=== PATIENT | male | born 1990 | race Caucasian/White ===

== ENCOUNTER 2023-07-01 06:16 | Day surgery (SDC) | payer OTHER ==
[2023-07-01] MEDS ORDERED: LACTATED RINGERS 1,000 ML IV SCH (06:48)
[2023-07-01] MEDS ORDERED: LIDOCAINE 1% (10MG/ML) FOR IV START INTRADERMA PRN (06:48)
[2023-07-01 06:51] VITALS: TEMP 97.6
[2023-07-01] MEDS ORDERED: LIDOCAINE 2% INJ 20 MG/ML (2 ML VIAL) ONE (07:18)
[2023-07-01] MEDS ORDERED: PROPOFOL 10 MG/ML 20 ML VIAL IV ONE (07:18)
--- NOTE | 2023-07-01 07:37 | P.PCN ---
Date of Procedure: 07/01/23 Procedure(s) Performed: Brief history: Patient is a pleasant 32-year-old white male scheduled for an elective upper endoscopy as well as colonoscopy as a part of evaluation of progressive dysphagia to solids and liquids for the last 2 years duration. He has the symptoms with every meal and most often with solids than liquids. Also has been having intermittent rectal bleeding. Procedure performed: Esophagogastroduodenoscopy with biopsy and dilation Colonoscopy Preoperative diagnosis: Dysphagia to solids of 2 years duration Intermittent rectal bleeding Anesthesia: MAC Procedure: After informed consent was obtained from the patient was brought into the endoscopy unit and IV sedation was administered by anesthesia under continuous monitoring. Initially upper endoscopy was done. The Olympus GF 160 video endoscope was inserted inserted into the mouth and esophagus intubated without any difficulty and was gradually advanced into the stomach and duodenum and carefully examined. The bulb and second part of the duodenum appeared normal. The scope was then withdrawn into the stomach adequately insufflated with air and upon careful examination the antrum and body, cardia and fundus appeared normal. The scope was then withdrawn into the esophagus. Moderate hiatal hernia noted. The GE junction was located at 40 cm to the incisors. The distal esophageal stricture identified that was dilated using 12 and 13.5 mm TTS balloon in a sequential fashion for 30 seconds. Mucosal tear was identified with oozing and hence for the lesion was not performed. The mucosa of the mid and distal esophagus had multiple mucosal rings with longitudinal ridges and furrows suspicious for eosinophilic esophagitis and biopsies were done in the mid and distal esophagus. Rest of the esophagus appeared normal. Patient tolerated the procedure well. At this time the patient continued to remain sedation. Initial digital rectal examination was normal. Olympus CF 160 video colonoscope was then inserted into the rectum and gradually advanced to the cecum without any difficulty. Careful examination was performed as the scope was gradually being withdrawn. The prep was excellent. The cecum, ascending colon, transverse colon, descending colon, sigmoid colon and rectum appeared normal. Retroflexion was performed in the rectum and small internal were noted. Patient tolerated the procedure well. Impression: 1. Upper endoscopy revealed multiple superficial mucosal rings with longitudinal ridges and 4 hours involving the mid and distal esophagus with a distal esophageal stricture status post balloon dilation using 12 and 13 mm TTS balloon consistent WITH EOSINOPHILIC ESOPHAGITIS. SMALL HIATAL 2. Colonoscopy was within normal limits with no evidence of colorectal neoplasia, small internal hemorrhoids Recommendations: Findings of this examination were discussed with the patient as well as his family. He was advised to follow with the biopsy results. He will remain on clear liquid diet for breakfast this morning. Follow up in office in 2 weeks to discuss the biopsy results and further management.
[2023-07-01 08:15] VITALS: BP 101/71; PULSE 61; RESP 15
== END 2023-07-01 08:31 | disposition home or self-care (01) ==
LOC: ORWHC2ENDO 06:16
PROVIDERS: ATTEND Internal Medicine Gastroenterology
DX: K21.00 Gastro-esophageal reflux disease with esophagitis, without bleeding (principal); K62.5 Hemorrhage of anus and rectum; K44.9 Diaphragmatic hernia without obstruction or gangrene; K22.2 Esophageal obstruction; Z79.899 Other long term (current) drug therapy
CPT/HCPCS: 88305; 45378; 43239; 43249; J2704; J2001; C1726

== ENCOUNTER 2023-08-31 07:46 | Day surgery (SDC) | payer OTHER ==
[2023-08-25 12:01] VITALS: BMI 22.8
[~2023-08-31 07:46] MED LIST: SODIUM CHLORIDE 0.9% 1,000 ML IV SCH
[2023-08-31] MEDS ORDERED: SODIUM CHLORIDE 0.9% 500 ML 500 ML IV ONE (07:58)
[2023-08-31 08:18] VITALS: BP 119/74; PULSE 84; RESP 16; TEMP 98.6
--- NOTE | 2023-08-31 15:12 | P.EPPROC ---
- EP Procedure Note Electrophysiology Procedure Note: Diagnosis Recurrent presyncope Twelve-lead EKG Sinus rhythm Normal EKG Tilt table test protocol Baseline blood pressure 101/62 Baseline heart rate 63 beats a minute Patient was tilted upright at an angle of 70 per protocol Mild increase in heart rate After 20 minutes of being upright sudden drop in blood pressure down to 80 mmHg. Secondary, slowing of heart rate, lowest 140 beats a minute Patient is laid supine Prior to loss of consciousness patient complained of lightheadedness and nausea followed by sweatiness and feeling hot Impression Normal. EKG Neurocardiogenic response to upright tilting
== END 2023-08-31 10:40 | disposition home or self-care (01) ==
LOC: CATHEP 07:46
PROVIDERS: ATTEND Internal Medicine Clinical Cardiac Electrophysiology
DX: R55 Syncope and collapse (principal)
CPT/HCPCS: 93660

== ENCOUNTER → 2024-04-28 | Outpatient (CLI) | payer OTHER ==
--- NOTE | 2024-04-28 19:24 | US ---
EXAMINATION TYPE: US abdomen complete DATE OF EXAM: 04/28/2024 COMPARISON: NONE CLINICAL INDICATION: Male, 33 years old with history of R74.8 ELEVATED LIVER ENZYMES; Elevated liver enzymes. Hx appendectomy in 2006. TECHNIQUE: Multiple sonographic images of the abdomen are obtained. FINDINGS: EXAM MEASUREMENTS: Liver Length: 14.6 cm Gallbladder Wall: 0.21 cm CBD: 0.61 cm Spleen: 11.7 cm Right Kidney: 11.7 x 5.7 x 5.9 cm Left Kidney: 11.4 x 5.3 x 5.4 cm LINTER TENDER NOTES: Exam is very limited due to great amount of gas. Pancreas: Obscured Liver: Appears very coarse in echotexture. Gallbladder: Multiple folds seen Evidence for sonographic Cuevas's sign: No CBD: Measures upper limits of normal. Spleen: Appears wnl Right Kidney: No hydronephrosis or masses seen Left Kidney: No hydronephrosis or masses seen Upper IVC: Appears wnl Abd Aorta: Portions seen appear wnl. Iliacs and mid aorta were obscured. IMPRESSION: 1. No acute ultrasound abnormality of the abdomen.
== END | disposition home or self-care (01) ==
LOC: RADUSWWP 09:53
PROVIDERS: ATTEND Family Medicine
DX: R74.8 Abnormal levels of other serum enzymes (principal)
CPT/HCPCS: 76700